=== PATIENT | male | born 1985 | race Caucasian/White ===

== ENCOUNTER 2021-12-24 18:16 | Emergency (ER) | payer SELFPAY ==
[2021-12-24] MEDS ORDERED: Ibuprofen 800 MG TAB ONE (19:33)
== END 2021-12-24 19:45 | disposition home or self-care (01) ==
LOC: NAV ERS 18:16
DX: S93.401A Sprain of unspecified ligament of right ankle, initial encounter (principal); S93.601A Unspecified sprain of right foot, initial encounter; S96.911A Strain of unspecified muscle and tendon at ankle and foot level, right foot, initial encounter; F17.210 Nicotine dependence, cigarettes, uncomplicated; X50.1XXA Overexertion from prolonged static or awkward postures, initial encounter